=== PATIENT | female | born 1960 | race Caucasian/White ===

== ENCOUNTER → 2016-12-26 | Outpatient (CLI) | payer BC | END | disposition home or self-care (01) | LOC: GMAB 13:25 | PROVIDERS: ATTEND Family Medicine | DX: R19.7 Diarrhea, unspecified (principal); K92.1 Melena; Z00.01 Encounter for general adult medical examination with abnormal findings ==

== ENCOUNTER → 2017-04-04 | Outpatient (CLI) | payer BC ==
--- NOTE | 2017-04-05 05:19 | MRI ---
Procedure: MR right KNEE WITHOUT IV CONTRAST Exam Date: 04/04/2017 8:55 AM CDT Ordering Provider: IRMA SALOMON Clinical Indication: PAIN IN RIGHT KNEE Comparison: Anterior knee pain after fall injury. Lateral and medial joint line tenderness. TECHNIQUE: Multiplanar, multisequence MR images of the right knee were obtained. FINDINGS: ACL and PCL are intact. There is a lobulated fluid collection seen adjacent to the semimembranosus distal tendon as well as along the and medial collateral ligament compatible with bursitis. The medial meniscus is intact. Medial compartment cartilage is without focal defect. Medial collateral ligament is intact. The majority of the lateral meniscal tissue is flipped into the intercondylar notch compatible with a large bucket-handle tear. This is best seen on sagittal images 18-26 and coronal imaging 13-21. There is resultant tissue deficient gap within the femorotibial space with fluid and resultant mild posterior weightbearing lateral femoral condyle chondrosis with fibrillation. No full-thickness defect. Patellofemoral extensor mechanism is unremarkable. Patellofemoral compartment cartilage is intact. Small joint effusion with mild synovitis. No loose bodies appreciated. No Andrews cyst appreciated. Bone marrow is otherwise unremarkable. IMPRESSION: 1. Large bucket-handle tear of the lateral meniscus with almost the entirety of the lateral meniscal tissue displaced into the intercondylar notch. There is mild resultant lateral compartment chondrosis. Lateral collateral ligamentous complex is intact. 2. Findings suggestive of semimembranosus tibial collateral ligament bursitis. 3. Moderate-sized joint effusion with synovitis. 4. Cruciate ligaments and medial meniscus are intact. Electronically signed by: Aurelio White MD 04/05/2017 5:18 AM CDT
== END | disposition home or self-care (01) ==
LOC: MRI 08:46
PROVIDERS: ATTEND Family Medicine
DX: S83.251A Bucket-handle tear of lateral meniscus, current injury, right knee, initial encounter (principal); W18.30XA Fall on same level, unspecified, initial encounter

== ENCOUNTER 2017-06-29 15:28 | Emergency (ER) | payer SELFPAY ==
[2017-06-29 16:13] VITALS: TEMP 98
[2017-06-29] MEDS ORDERED: diazePAM INJ 10 MG/2 ML SYG IM ONE (16:18)
--- NOTE | 2017-06-29 16:21 | ED.PDOC ---
History of Present Illness - General Chief Complaint: General Stated Complaint: neck pain Time Seen by Provider: 06/29/17 15:36 Source: patient, RN notes reviewed, Vital Signs reviewed, family - Exam Limitations: no limitations - History of Present Illness Initial Comments: Patient presents to ER with c/o L neck/shoulder pain that started last night. She does have a history of spinal stenosis but has never had pain like this before. Pain is a sharp, stabbing pain. Denies worsening with movement of neck but reports she can't find a comfortable position. She did take some Tramadol last night which helped and allowed her to get some sleep. Pain does not radiate down arm. No numbness, tingling or weakness. Timing/Duration: 24 hours Severity: severe Improving Factors: medication - Tramadol Worsening Factors: nothing Associated Symptoms: denies symptoms Allergies/Adverse Reactions: Allergies Penicillins Allergy (Verified 06/29/17 16:12) Home Medications: Ambulatory Orders Celecoxib [Celebrex] 200 mg PO DAILY 06/05/17 Hydrochlorothiazide 25 mg PO DAILY 06/05/17 Levothyroxine Sodium 50 mcg PO DAILY 06/05/17 Lisinopril 10 mg PO DAILY 06/05/17 Pantoprazole Tablet [Protonix] 40 mg PO ACBK 06/05/17 Review of Systems - Review of Systems Constitutional: States: no symptoms reported EENTM: States: no symptoms reported Respiratory: States: no symptoms reported Cardiology: States: no symptoms reported Gastrointestinal/Abdominal: States: no symptoms reported Musculoskeletal: States: see HPI, muscle pain, neck pain Skin: States: no symptoms reported Neurological: States: no symptoms reported. Denies: headache, numbness, paresthesia, tingling, tremors, weakness All other Systems: No Change from Baseline Past Medical History (General) - Patient Medical History Hx Seizures: No Hx Stroke: No Hx Dementia: No Hx Asthma: No Hx of COPD: No Hx Cardiac Disorders: No Hx Congestive Heart Failure: No Hx Pacemaker: No Hx Hypertension: Yes Hx Thyroid Disease: Yes Hx Diabetes: No Hx Gastroesophageal Reflux: No Hx Renal Disease: No Hx Cancer: No Hx of HIV: No Hx Hepatitis C: No Hx MRSA: No Surgical History: cholecystectomy, Hysterectomy - Vaccination History Hx Tetanus, Diphtheria Vaccination: No - unk Hx Influenza Vaccination: No Hx Pneumococcal Vaccination: No - Social History Hx Tobacco Use: No Hx Chewing Tobacco Use: No Hx Alcohol Use: Yes - occasional Hx Substance Use: No Hx Substance Use Treatment: No Hx Depression: No Hx Physical Abuse: No Hx Emotional Abuse: No Hx Suspected Abuse: No - Female History Patient is a Female of Child Bearing Age (10 -59 yrs old): No Patient : No Family Medical History - Family History Mother Family History: Unknown Physical Exam - Physical Exam General Appearance: Agitated, Alert, Obvious distress, Well Developed, Well Groomed, Well Hydrated, Well Nourished Ears, Nose, Throat: hearing grossly normal, normal ENT inspection Neck: limited range of motion - due to pain, tender lateral - L paraspinous muscles and supraspinatous muscle - + spasm and tenderness. Respiratory: no respiratory distress Back Exam: no vertebral tenderness, muscle spasm - L upper back/shoulder Extremity: normal range of motion, normal inspection Neurologic: no motor/sensory deficits, alert, normal mood/affect, oriented x 3 Skin Exam: normal color, warm/dry Comments: Vital Signs 06/29/17 15:40 Temperature 98.0 F Pulse Rate [ 99 H pulse ox] Respiratory 20 Rate Blood Pressure 131/74 [Left Arm] O2 Sat by Pulse 96 Oximetry Progress - Progress Progress: 06/29/17 17:00 Valium 10mg IM given. Pain is improved but still reports she can't get comfortable. Will add Tylenol #3. She is agreeable. She appears much more comfortable. 06/29/17 17:53 Patient is feeling much better. Will follow up with her drTadeo in 2 days. 06/29/17 17:55 Will ER dispense Tyl #3 and Flexeril as pharmacies are closed. Departure - Departure Clinical Impression: Neck muscle spasm Cervical myofascial strain Qualifiers: Encounter type: initial encounter Qualified Code(s): S16.1XXA - Strain of muscle, fascia and tendon at neck level, initial encounter Time of Disposition: 17:56 Disposition: Discharge to Home or Self Care Condition: Good Departure Forms: ED Discharge - Pt. Copy, Patient Portal Self Enrollment Instructions: DI for Cervical Muscle Strain Diet: resume usual diet Activity: increase activity as tolerated Referrals: Ezra Ware MD [Primary Care Provider] - 1-2 Weeks Home Medications: Ambulatory Orders Celecoxib [Celebrex] 200 mg PO DAILY 06/05/17 Hydrochlorothiazide 25 mg PO DAILY 06/05/17 Levothyroxine Sodium 50 mcg PO DAILY 06/05/17 Lisinopril 10 mg PO DAILY 06/05/17 Pantoprazole Tablet [Protonix] 40 mg PO ACBK 06/05/17 Additional Instructions: Take Flexeril (Cyclobenzaprine) every 8 hours as needed for muscle spasm Take Tylenol with Codeine every 6 hours as needed for pain Follow up with your doctor in 2-3 days.
[2017-06-29] MEDS ORDERED: ACETAMINOPHEN W/COD #3 TAB 1 EA TAB PO ONE (16:59)
[2017-06-29] MEDS ORDERED: CYCLOBENZAPRINE TAB (ER DISP) 10 MG TAB PO ONE (17:53)
[2017-06-29] MEDS ORDERED: ACETAMINOPHEN W/COD #3 TAB (ER Disp) PO ONE (17:53)
[2017-06-29 18:15] VITALS: BP 129/73; O2SAT 95
== END 2017-06-29 18:15 | disposition home or self-care (01) ==
LOC: ER 15:28
DX: S16.1XXA Strain of muscle, fascia and tendon at neck level, initial encounter (principal); E07.9 Disorder of thyroid, unspecified; I10 Essential (primary) hypertension; Z79.899 Other long term (current) drug therapy; Z88.0 Allergy status to penicillin; X58.XXXA Exposure to other specified factors, initial encounter

== ENCOUNTER 2017-07-01 06:03 | Day surgery (SDC) | payer BC ==
[~2017-07-01 06:03] MED LIST: LACTATED RINGERS 1,000 ML ONE; SODIUM CHL 0.9% 50ML MIN-BAG+ 50 ML IVPB ONE; ceFAZolin SODIUM 1 GM VIAL ONE
[2017-07-01] MEDS ORDERED: VANCOMYCIN HCL INJ 1,000 MG VIAL IVPB ONE (06:36)
[2017-07-01] MEDS ORDERED: BUPIVACAINE 0.25% W/EPI 50 ML VIAL INJ ONE (06:36)
[2017-07-01] MEDS ORDERED: ceFAZolin SODIUM 1 GM VIAL ONE ×2 (06:36→08:09)
[2017-07-01] MEDS ORDERED: MIDAZOLAM INJ 2 MG/2 ML VIAL ONE (06:47)
[2017-07-01] MEDS ORDERED: fentaNYL CITRATE INJ 50 MCG/ML AMP ONE (06:47)
[2017-07-01] MEDS ORDERED: CARBOXYMETHYLCELLULOSE 0.5% OPHTH SOL 0.4 ML UD ONE (07:14)
[2017-07-01] MEDS: ceFAZolin SODIUM 1 GM VIAL ONE ×2 (08:10→08:15)
[2017-07-01] MEDS ORDERED: HYDROcodone 5MG/APAP 325MG 1 EA TAB ONE (09:04)
[2017-07-01] MEDS ORDERED: DEXAMETHASONE INJ 10 MG/ML VIAL IV ONE (10:00)
[2017-07-01] MEDS ORDERED: KETOROLAC TROMETHAMINE INJ 30 MG/ML VIAL IV ONE (10:00)
[2017-07-01] MEDS ORDERED: raNITIdine HCL INJ 25 MG/ML VIAL IV ONE (10:00)
[2017-07-01] MEDS ORDERED: PROPOFOL 200 MG/20 ML VIAL IV ONE (10:00)
[2017-07-01] MEDS ORDERED: METOCLOPRAMIDE HCL INJ 10 MG/2 ML VIAL IV ONE (10:00)
[2017-07-01] MEDS ORDERED: LIDOCAINE 1% 10 ML VIAL INJ ONE (10:00)
[2017-07-01] MEDS ORDERED: ceFAZolin SODIUM 1 GM VIAL IVPB ONE (10:00)
[2017-07-01 10:09] VITALS: BP 141/86; TEMP 97.6; O2SAT 98
--- NOTE | 2017-07-02 08:49 | OP ---
DATE OF PROCEDURE: 07/01/17 PREOPERATIVE DIAGNOSIS: 1. Meniscus tear. 2. Arthritis. POSTOPERATIVE DIAGNOSIS: 1. Meniscus tear. 2. Arthritis. PROCEDURE: 1. Lateral meniscectomy. 2. Debridement. SURGEON: Jeffrey Vaughan MD. CIGAR MAKER: Alexis Ridley CST, SA-C. ANESTHESIA: General. COMPLICATIONS: None. FINDINGS: 1. Advanced cartilage loss on the medial femoral condyle. 2. Advanced cartilage loss on the medial tibial plateau. 3. Normal anterior cruciate ligament. 4. Normal posterior cruciate ligament. 5. Large bucket handle tear of the lateral meniscus. 6. Full thickness cartilage loss on the lateral tibial plateau. 7. Normal lateral gutter. 8. Normal suprapatellar pouch. 9. Grade 3 to 4 changes in the patellofemoral joint. 10.Normal medial gutter. INDICATION: Ms. Delgado has a history of pain in the knee for which she has tried conservative measures. Unfortunately, she has been unable to get relief. Because of the ongoing pain, she was requested operative intervention. After discussing the risks, benefits and alternatives to that, the patient has given informed consent for arthroscopy. PROCEDURE: The patient was brought to the Operating Room and placed in supine position. General anesthesia was induced and the patient's leg was sterilely prepped and draped. Following prepping and draping, standard anteromedial and anterolateral portals were established. Diagnostic arthroscopy was carried out with the above findings. Following diagnostic arthroscopy, debridement was carried out in the medial compartment using a 3.5 mm full radius shaver. The chondral surfaces were thoroughly probed to ensure stability of the remaining cartilage. Following that, attention was focused on the lateral compartment and given the size of the tear and the extent of it, I elected to perform a partial lateral meniscectomy. Once the meniscectomy had been performed, the lateral compartment was thoroughly examined and the remaining meniscal rim was probed. The meniscal rim was found to be stable. The knee was thoroughly irrigated. The wounds were closed with Nylon suture. Sterile dressings were placed. The patient was awoken from anesthesia and taken to Recovery. POSTOPERATIVE INSTRUCTIONS: The patient will be partial weightbearing until followup with us in two days. We will discuss further her findings at the time of surgery and further interventions that may be performed. #[id number] [facility]
== END 2017-07-01 09:55 | disposition home or self-care (01) ==
LOC: AMB 06:03
PROVIDERS: ATTEND Orthopaedic Surgery
DX: M23.200 Derangement of unspecified lateral meniscus due to old tear or injury, right knee (principal); I10 Essential (primary) hypertension; Z88.0 Allergy status to penicillin; Z79.899 Other long term (current) drug therapy
CPT/HCPCS: 01400; 29881; 36415; 80048; 81001; 85025; 87070; 93005; J0690; J1100; J1885; J2250; J2765; J2780; J3010; J3370; J3490; J7050; J7120

== ENCOUNTER → 2018-02-02 | Outpatient (CLI) | payer BC | LOC: GMAE 10:41 | PROVIDERS: ATTEND Family Medicine | DX: Z00.01 Encounter for general adult medical examination with abnormal findings (principal) ==

== ENCOUNTER → 2019-02-18 | Outpatient (CLI) | payer BC | LOC: GMAE 10:21 | PROVIDERS: ATTEND Family Medicine | DX: Z00.01 Encounter for general adult medical examination with abnormal findings (principal) ==

== ENCOUNTER 2019-11-28 10:56 | Emergency (ER) | payer BC ==
[~2019-11-28 10:56] MED LIST changes: +HYDROmorphone HCL INJ 2 MG/ML VIAL IV ONE; -LACTATED RINGERS 1,000 ML ONE; +ONDANSETRON INJ 4 MG/2 ML VIAL IV ONE; -SODIUM CHL 0.9% 50ML MIN-BAG+ 50 ML IVPB ONE; +SODIUM CHLORIDE 0.9% (FLUSH) 10 ML SYG IV PRN; +SODIUM CHLORIDE 0.9% 1000ML 1,000 ML IVS PRN; -ceFAZolin SODIUM 1 GM VIAL ONE
[2019-11-28] MEDS ORDERED: TETANUS,DIPHTHERIA,PERTUSSIS 1 EA SYG IM ONE (11:01)
--- NOTE | 2019-11-28 11:08 | ED.PDOC ---
History of Present Illness - General Time Seen by Provider: 11/28/19 10:56 Source: patient, RN notes reviewed, Vital Signs reviewed, family Exam Limitations: no limitations - History of Present Illness Initial Comments: Pt presents to ED for snake bite to dorsal left hand about 10 minutes [employer]. States she was pulling weeds in her flower bed and saw a 10 inch long copperhead that bit her on the left dorsal palm over the 3rd MCP joint. Has pain to dorsal palm and denies other bite areas or injuries. Has PMH of HTN and unsure of last tetanus shot. Denies fver, NVD, CP or SOB. Allergies/Adverse Reactions: Allergies Penicillins Allergy (Verified 06/29/17 16:12) Home Medications: Ambulatory Orders Hydrochlorothiazide 25 mg PO DAILY 06/05/17 Levothyroxine Sodium 50 mcg PO DAILY 06/05/17 Lisinopril 10 mg PO DAILY 06/05/17 Pantoprazole Tablet [Protonix] 40 mg PO ACBK 06/05/17 Acetaminophen W/ Codeine [Tylenol W/ CODEINE #3] 1 tablet PO Q6H PRN #20 11/28/19 Clindamycin HCl 150 mg PO TID 11/28/19 Meloxicam 7.5 mg PO BID 11/28/19 Review of Systems - Review of Systems Constitutional: Denies: chills, fever, weakness EENTM: Denies: nose congestion, throat pain, throat swelling Respiratory: Denies: cough, short of breath, stridor Cardiology: Denies: edema, palpitations, syncope Gastrointestinal/Abdominal: Denies: abdominal pain, nausea, vomiting Musculoskeletal: Denies: back pain, neck pain Skin: States: see HPI Neurological: Denies: headache, paresthesia Hematologic/Lymphatic: States: no symptoms reported All other Systems: Reviewed and Negative Past Medical History (General) - Patient Medical History Hx Seizures: No Hx Stroke: No Hx Dementia: No Hx Asthma: No Hx of COPD: No Hx Cardiac Disorders: No Hx Congestive Heart Failure: No Hx Pacemaker: No Hx Hypertension: Yes Hx Thyroid Disease: Yes Hx Diabetes: No Hx Gastroesophageal Reflux: No Hx Renal Disease: No Hx Cancer: No Hx of HIV: No Hx Hepatitis C: No Hx MRSA: No - Vaccination History Hx Tetanus, Diphtheria Vaccination: No - unk Hx Influenza Vaccination: No Hx Pneumococcal Vaccination: No - Social History Hx Tobacco Use: No Hx Chewing Tobacco Use: No Hx Alcohol Use: Yes - occasional Hx Substance Use: No Hx Substance Use Treatment: No Hx Depression: No Hx Physical Abuse: No Hx Emotional Abuse: No Hx Suspected Abuse: No - Female History Patient : No Family Medical History - Family History Mother Family History: Unknown Physical Exam - Physical Exam General Appearance: Alert, Comfortable, No apparent distress Ears, Nose, Throat: normal ENT inspection Neck: full range of motion, supple Respiratory: chest non-tender, lungs clear, normal breath sounds, no respiratory distress Cardiovascular/Chest: regular rate, rhythm Peripheral Pulses: radial,left: 2+ Gastrointestinal/Abdominal: non tender, soft, no pulsatile mass Back Exam: no CVA tenderness, no vertebral tenderness Extremity: non-tender, no pedal edema, no calf tenderness Neurologic: no motor/sensory deficits, alert, normal mood/affect Skin Exam: rash - There is a puncture wound over the 3rd MCP joint area of dorsal palm with 3 cm area of edema and erythema to the area Progress - Progress Progress: 11/28/19 11:11 Pt has snake bite to left dorsal palm. minimal erythema and edema at this time. Will draw labs to include CBC, D dimer, fibrinogen and frequently monitor in ED for change in symptoms or worsening condition. 11/28/19 11:29 Updated pt and daughter on initial lab results. Will d/w poison Control. Minimal change in erythema or edema. No systemic signs at this time. Pt agrees with monitoring in ED for progression. 11/28/19 12:28 Recheck patient. Resting comfortably. VSS. Pain controlled. Erythema/edema frequently assessed and has not crossed the wrist. Continue to monitor. 11/28/19 15:56 Recheck patient. No progression of erythema or edema. resting comfortably. 11/28/19 17:58 Pt has been observed in ED with no progression of symptoms. Labs and VS reassuring. Pt feels comfortable going home. She is currently on Clindamycin 300 mg TID for 8 more days for dental procedure. Allergic to PCN. Will cont current abx and f/u with pcp in 1-2 days for recheck. SRP given. - Results/Orders Results/Orders: 11/28/19 10:56 Sodium Chloride 0.9% (Flush) [Saline Flush Syringe] 10 ml IV PRN PRN Sodium Chloride 0.9% 1000ML [Ns 1000 ml] 1,000 ml IVS .QD 11/28/19 10:58 Pulse Oximetry Assessment DAILY 11/28/19 11:04 EKG Assessment ONCE 11/28/19 11:15 EKG .ONCE 11/29/19 09:00 Pulse Ox Daily Laboratory Results - last 24 hr 11/28/19 11/28/19 11/28/19 11:06 11:06 11:06 WBC 7.2 RBC 4.24 Hgb 14.5 Hct 41.2 MCV 97.3 MCH 34.3 H MCHC 35.2 RDW 12.6 Plt Count 349 MPV 8.8 Absolute Neuts (auto) 4.10 Absolute Lymphs (auto) 2.50 Absolute Monos (auto) 0.50 Absolute Eos (auto) 0.10 Absolute Basos (auto) 0.10 Neutrophils % 57.3 Lymphocytes % 34.1 Monocytes % 7.1 Eosinophils % 0.8 L Basophils % 0.7 PT 10.1 INR 1.02 PTT (SP) 20.1 L Fibrinogen 223 D-Dimer, Quantitative 149 Sodium Potassium Chloride Carbon Dioxide Anion Gap BUN Creatinine BUN/Creatinine Ratio Random Glucose Serum Osmolality Calcium Total Bilirubin AST ALT Alkaline Phosphatase Serum Total Protein Albumin Globulin Albumin/Globulin Ratio Urine Color Urine Appearance Urine pH Ur Specific [place] Urine Protein Urine Glucose (UA) Urine Ketones Urine Blood Urine Nitrite Urine Bilirubin Urine Urobilinogen Ur Leukocyte Esterase Urine RBC Urine WBC Ur Epithelial Cells Urine Bacteria 11/28/19 11/28/19 11/28/19 11:06 12:07 16:57 WBC RBC Hgb Hct MCV MCH MCHC RDW Plt Count MPV Absolute Neuts (auto) Absolute Lymphs (auto) Absolute Monos (auto) Absolute Eos (auto) Absolute Basos (auto) Neutrophils % Lymphocytes % Monocytes % Eosinophils % Basophils % PT INR PTT (SP) Fibrinogen 187 L D-Dimer, Quantitative < 131 L Sodium 132 L Potassium 3.5 L Chloride 97 L Carbon Dioxide 23 Anion Gap 15.5 BUN 19 H Creatinine 0.77 BUN/Creatinine Ratio 24.7 H Random Glucose 101 Serum Osmolality 266.9 L Calcium 9.7 Total Bilirubin 0.8 AST 32 ALT 30 Alkaline Phosphatase 65 Serum Total Protein 7.3 Albumin 4.6 Globulin 2.7 Albumin/Globulin Ratio 1.7 Urine Color Yellow Urine Appearance Clear Urine pH 6.0 Ur Specific [place] 1.015 Urine Protein Negative Urine Glucose (UA) Negative Urine Ketones Negative Urine Blood Negative Urine Nitrite Negative Urine Bilirubin Negative Urine Urobilinogen 0.2 Ur Leukocyte Esterase Negative Urine RBC 0 Urine WBC 0 Ur Epithelial Cells 0-1 Urine Bacteria 0 11/28/19 17:27 WBC 8.9 RBC 4.14 L Hgb 14.1 Hct 40.7 MCV 98.4 MCH 34.0 H MCHC 34.6 RDW 12.8 Plt Count 316 MPV 8.7 Absolute Neuts (auto) 6.00 Absolute Lymphs (auto) 2.10 Absolute Monos (auto) 0.70 Absolute Eos (auto) 0.00 Absolute Basos (auto) 0.00 Neutrophils % 67.9 Lymphocytes % 23.7 Monocytes % 7.8 Eosinophils % 0.3 L Basophils % 0.3 PT INR PTT (SP) Fibrinogen D-Dimer, Quantitative Sodium Potassium Chloride Carbon Dioxide Anion Gap BUN Creatinine BUN/Creatinine Ratio Random Glucose Serum Osmolality Calcium Total Bilirubin AST ALT Alkaline Phosphatase Serum Total Protein Albumin Globulin Albumin/Globulin Ratio Urine Color Urine Appearance Urine pH Ur Specific [place] Urine Protein Urine Glucose (UA) Urine Ketones Urine Blood Urine Nitrite Urine Bilirubin Urine Urobilinogen Ur Leukocyte Esterase Urine RBC Urine WBC Ur Epithelial Cells Urine Bacteria - EKG/XRAY/CT Comments: NSR, rate 85, nml intervals, no ST abnormality Departure - Departure Clinical Impression: Left hand pain Snake bite Qualifiers: Encounter type: initial encounter Qualified Code(s): W59.11XA - Bitten by nonvenomous snake, initial encounter Time of Disposition: 18:01 Disposition: Discharge to Home or Self Care Condition: Fair Instructions: DI for Animal Bites Diet: resume usual diet Activity: increase activity as tolerated Referrals: RACHEL DENNY MD [Primary Care Provider] - 1-2 Days Prescriptions: Acetaminophen W/ Codeine [Tylenol W/ CODEINE #3] 1 tablet PO Q6H PRN #20 PRN Reason: Pain Home Medications: Ambulatory Orders Hydrochlorothiazide 25 mg PO DAILY 06/05/17 Levothyroxine Sodium 50 mcg PO DAILY 06/05/17 Lisinopril 10 mg PO DAILY 06/05/17 Pantoprazole Tablet [Protonix] 40 mg PO ACBK 06/05/17 Acetaminophen W/ Codeine [Tylenol W/ CODEINE #3] 1 tablet PO Q6H PRN #20 11/28/19 Clindamycin HCl 150 mg PO TID 11/28/19 Meloxicam 7.5 mg PO BID 11/28/19
[2019-11-28] MEDS ORDERED: ACETAMINOPHEN 500 MG TAB PO ONE (11:29)
[2019-11-28] MEDS ORDERED: MORPHINE SULFATE INJ 10 MG/ML VIAL IV ONE (12:59)
[2019-11-28] MEDS ORDERED: HYDROmorphone HCL INJ 2 MG/ML VIAL IV ONE (15:03)
[2019-11-28] MEDS ORDERED: ONDANSETRON INJ 4 MG/2 ML VIAL IV ONE (16:25)
[2019-11-28] MEDS ORDERED: PROMETHAZINE HCL INJ 12.5 MG in SODIUM CHLORIDE 0.9% 50ML 50 ML IVPB ONE (17:27)
[2019-11-28] MEDS ORDERED: ACETAMINOPHEN W/COD #3 TAB (ER Disp) PO ONE (18:07)
[2019-11-28] MEDS ORDERED: ONDANSETRON ODT (ER DISP) 8 MG TAB PO ONE ×2 (18:15→18:19)
[2019-11-28 19:08] VITALS: TEMP 98.2
[2019-12-01 19:25] VITALS: BP 161/89; O2SAT 96
== END 2019-11-28 18:30 | disposition home or self-care (01) ==
LOC: ER 10:56
DX: S61.452A Open bite of left hand, initial encounter (principal); I10 Essential (primary) hypertension; W59.11XA Bitten by nonvenomous snake, initial encounter; Y92.9 Unspecified place or not applicable
CPT/HCPCS: 36415; 80053; 81001; 85025; 85379; 85384; 85610; 85730; 90471; 90715; 93005; A4216; J1170; J2270; J2405; J2550; J7030

== ENCOUNTER → 2019-12-22 | Outpatient (CLI) | payer BC ==
--- NOTE | 2019-12-23 13:34 | US ---
EXAM DESCRIPTION: Soft Tissue,Abdomen: ULTRASOUND. CLINICAL HISTORY: 59 years Female LOCALIZED SWELLING, MASS AND LUMP UNSPEC COMPARISON: None Available. TECHNIQUE: Transcutaneous scanning: Neff-scale and Doppler modes. FINDINGS: Hypoechoic fusiform shaped circumscribed and mass in the subcutaneous adipose tissue posterior to the deep fascia in the muscle layer of the back. This mass measures 2.8 x 3.6 x 0.6 cm. Not vascular. No distinct cyst, no large calcifications. No fluid collection and overlying skin shows no changes. IMPRESSION: Lipoma versus fibrous tissue/scar versus hematoma versus granulation tissue in the region of interest. Consider follow-up ultrasound if the lesion enlarges or becomes painful or erythematous. Electronically signed by: lAexis George MD 12/23/2019 1:32 PM CDT
== END ==
LOC: US 14:01
PROVIDERS: ATTEND Family Medicine
DX: R22.9 Localized swelling, mass and lump, unspecified (principal)

== ENCOUNTER 2020-02-04 02:52 | Emergency (ER) | payer BC ==
--- NOTE | 2020-02-04 03:13 | ED.PDOC ---
History of Present Illness - General Time Seen by Provider: 02/04/20 03:03 - History of Present Illness Initial Comments: 59 yo F PMH HTN Thyroid Disease patient of Dr. Correa presents to ED at bedside c/o constipation x 4 days. Denies blood last BM this am 'a little pebble' Denies fever chills nausea vomiting diarrhea chest pain sob diaphoresis. No change in diet rest or bladder. Denies smoking drinks beer admits FH HTN denies FH DM no other c/o today. Denies fever cough sob recent travel or contact with covid19. PPE worn-N95 surgical mask with attached face shield over N95 goggles gloves and face shield over that Review of Systems - Review of Systems Constitutional: States: see HPI EENTM: States: see HPI Respiratory: States: see HPI Cardiology: States: see HPI Gastrointestinal/Abdominal: States: see HPI Genitourinary: States: see HPI Musculoskeletal: States: see HPI Skin: States: see HPI Neurological: States: see HPI Endocrine: States: see HPI All other Systems: Reviewed and Negative Past Medical History (General) - Patient Medical History Hx Seizures: No Hx Stroke: No Hx Dementia: No Hx Asthma: No Hx of COPD: No Hx Cardiac Disorders: No Hx Congestive Heart Failure: No Hx Pacemaker: No Hx Hypertension: Yes Hx Thyroid Disease: Yes Hx Diabetes: No Hx Gastroesophageal Reflux: No Hx Renal Disease: No Hx Cancer: No Hx of HIV: No Hx Hepatitis C: No Hx MRSA: No - Vaccination History Hx Tetanus, Diphtheria Vaccination: No - unk Hx Influenza Vaccination: No Hx Pneumococcal Vaccination: No - Social History Hx Tobacco Use: No Hx Chewing Tobacco Use: No Hx Alcohol Use: Yes - occasional Hx Substance Use: No Hx Substance Use Treatment: No Hx Depression: No Hx Physical Abuse: No Hx Emotional Abuse: No Hx Suspected Abuse: No - Female History Patient : No Family Medical History - Family History Mother Family History: Unknown Physical Exam - Physical Exam General Appearance: No apparent distress Eyes, Ears, Nose, Throat Exam: normal ENT inspection Neck: non-tender, full range of motion Respiratory: no respiratory distress Cardiovascular/Chest: regular rate, rhythm Gastrointestinal/Abdominal: soft, tenderness - LLQ Pelvic Exam: other - deferred Rectal Exam: deferred Back Exam: normal inspection Extremity: normal range of motion, non-tender Neurologic: no motor/sensory deficits Skin Exam: normal color Progress - Progress Progress: 02/04/20 03:18 A/L-[id number] cocktail colace magnesium citrate dulcolax suppository ua cxr reassess If unremarkable d/c follow up pcp referral colace maalox simethicone dulcolax suppository magnesium citrate 02/04/20 03:38 Departure - Departure Clinical Impression: Constipation Qualifiers: Constipation type: unspecified constipation type Qualified Code(s): K59.00 - Constipation, unspecified Disposition: Discharge to Home or Self Care Condition: Fair Referrals: RACHEL CORREA MD [Primary Care Provider] - 1-2 Weeks Prescriptions: Docusate Sodium [Colace Cap] 100 mg PO BID 5 Days cap Bisacodyl Suppository 10Mg [Dulcolax Suppository 10mg] 10 mg [place] DAILY 5 Days sup Aluminum & Magnesium Hydroxide [Maalox] 30 ml PO DAILY 5 Days ud Magnesium Citrate 300 ml PO DAILY 3 Days bttl Simethicone 125 mg PO BID 5 Days cap Home Medications: Ambulatory Orders Hydrochlorothiazide 25 mg PO DAILY 06/05/17 Levothyroxine Sodium 50 mcg PO DAILY 06/05/17 Lisinopril 10 mg PO DAILY 06/05/17 Pantoprazole Tablet [Protonix] 40 mg PO ACBK 06/05/17 Acetaminophen W/ Codeine [Tylenol W/ CODEINE #3] 1 tablet PO Q6H PRN #20 11/28/19 Clindamycin HCl 150 mg PO TID 11/28/19 Meloxicam 7.5 mg PO BID 11/28/19 Aluminum & Magnesium Hydroxide [Maalox] 30 ml PO DAILY 5 Days ud 02/04/20 Bisacodyl Suppository 10Mg [Dulcolax Suppository 10mg] 10 mg [place] DAILY 5 Days sup 02/04/20 Docusate Sodium [Colace Cap] 100 mg PO BID 5 Days cap 02/04/20 Magnesium Citrate 300 ml PO DAILY 3 Days bttl 02/04/20 Simethicone 125 mg PO BID 5 Days cap 02/04/20
[2020-02-04] MEDS: ONDANSETRON ODT 8 MG TAB SL ONE (03:14)
[2020-02-04] MEDS: MAGNESIUM CITRATE 300 ML BTTL PO ONE (03:14)
[2020-02-04] MEDS: BISACODYL SUPPOSITORY 10 MG PR ONE (03:14)
[2020-02-04 03:35] VITALS: TEMP 96.8; O2SAT 99
[2020-02-04] MEDS: MINERAL OIL PO ONE (03:39)
--- NOTE | 2020-02-04 03:42 | RAD ---
EXAM DESCRIPTION: XR Chest, 2 Views CLINICAL HISTORY: constipation TECHNIQUE: Two views of the chest are submitted. COMPARISON: None available for comparison FINDINGS: Heart: The cardiothoracic silhouette is within normal limits. Lungs: No focal consolidation. Mediastinum: Unremarkable Pleura: No appreciable effusion. No pneumothorax. Bones: Mild multilevel spondylosis. No acute fracture. Upper abdomen: Right upper quadrant surgical clips. IMPRESSION: No acute disease. Electronically signed by: Anne Marie Argueta MD 02/04/2020 3:40 AM CDT
[2020-02-04 04:02] VITALS: BP 136/76
== END 2020-02-04 04:01 | disposition home or self-care (01) ==
LOC: ER 02:52
DX: K59.00 Constipation, unspecified (principal); R10.32 Left lower quadrant pain; I10 Essential (primary) hypertension; E07.9 Disorder of thyroid, unspecified; Z79.899 Other long term (current) drug therapy

== ENCOUNTER → 2020-02-28 | Outpatient (CLI) | payer BC | END | disposition home or self-care (01) | LOC: GMAE 10:19 | PROVIDERS: ATTEND Family Medicine | DX: Z00.00 Encounter for general adult medical examination without abnormal findings (principal) ==

== ENCOUNTER → 2020-05-04 | Outpatient (CLI) | payer BC ==
--- NOTE | 2020-05-04 15:25 | MRI ---
EXAM DESCRIPTION: Cervical Spine: MRI. CLINICAL HISTORY: 59 years Female SPINAL STENOSIS COMPARISON: MRI scan cervical spine without contrast September 2011. TECHNIQUE: Multiplanar, high-field MRI, multiple sequences, non-contrast Cervical spine. FINDINGS: C3-C4: Normal signal in the disc. 2 mm anterolisthesis. No significant disc bulge. Hypertrophic changes in the right facet joint. Right uncinate spur. Neural foraminal stenosis. Left neuroforamen patent. Minimal inflammatory changes in the left facet. Canal patent. C4-C5: Mild to moderate disc space loss anterior bulging and disc desiccation. Anterior endplate spurs. Posterior broad-based bulge abutting the cord. Mild canal narrowing. Bilateral facet joints are negative. Mild canal narrowing. Bilateral mild neural foraminal narrowing. C5-C6: Moderate disc space loss disc desiccation anterior bulging and endplate ridging. Posterior broad-based disc osteophyte bulge impressing on the cord along with thickening of the posterior ligaments and mild central canal stenosis. Bilateral uncinate spurs. Bilateral neural foraminal stenosis. C6-C7: Moderate disc desiccation and disc space loss with anterior bulging and endplate ridging. Posterior midline disc osteophyte bulge impressing on the cord. Bilateral uncinate spurs. Minimal ligament thickening. Borderline mild central canal stenosis. Bilateral facet joints negative. Bilateral neural foraminal stenosis. C7-T1: Disc desiccation and minimal disc space loss. Bilateral facet arthrosis. No disc bulging. Borderline right neural foraminal stenosis with left neuroforamen patent. Normal signal in the C2-C3 disc and T1-T2 disc with no bulging. Disc spaces preserved. Canal and neural foramina are patent. Facet joints . Spinal alignment C3-C5 kyphosis.. No cord compression or cord edema. Atlantoaxial joint minimal arthrosis. Base of the cerebellar tonsils is well above the foramen magnum. Paravertebral soft tissues are negative. Vertebral bodies are not compressed at any level. Otherwise normal marrow signal in the remaining vertebral bodies and the posterior elements. IMPRESSION: 1. Multifactorial right neural foraminal stenosis at C3-C4 with possible impingement right C4 nerve. This is progressed since the prior study. 2. Multifactorial mild central canal stenosis C5-C6 and bilateral neural foraminal stenosis caused by uncinate and facet spurs. Correlate for bilateral C6 radiculopathy. Unfavorable interval change since the prior study. 3. Multifactorial bilateral neural foraminal stenosis C6-C7 and borderline mild multifactorial central canal stenosis. This is progressed since the prior study. Correlate for bilateral C7 radiculopathy. Electronically signed by: Alexis George MD 05/04/2020 3:24 PM CDT
== END ==
LOC: MRI 09:22
PROVIDERS: ATTEND Family Medicine
DX: M48.02 Spinal stenosis, cervical region (principal); M25.78 Osteophyte, vertebrae